=== PATIENT | female | born 1990 | race Caucasian/White ===

== ENCOUNTER → 2018-05-17 | Outpatient (CLI) | payer OTHER | END | disposition home or self-care (01) | LOC: LAB 08:43 → LAB SHORT 08:43 | DX: Z34.80 Encounter for supervision of other normal pregnancy, unspecified trimester (principal) | CPT/HCPCS: 87081; 87653 ==

== ENCOUNTER 2018-06-23 05:12 | Inpatient (IN) | payer OTHER ==
[~2018-06-23] VITALS: Ht 167.6 cm; Wt 0.4 kg
[2018-06-23] MEDS ORDERED: Verotin-Gr Cap1 EACH (05:22)
[2018-06-23 05:49] LABS: BASOPHILS ABSOLUTE AUTO 0.03 K/mm3 (0.00-0.23); BASOPHILS PERCENT AUTO 0 % (0-2); EOSINOPHILS ABSOLUTE AUTO 0.07 K/mm3 (0.00-0.68); EOSINOPHILS PERCENT AUTO 1 % (0-6); Hematocrit 36.4 % (33.0-51.0); IMMATURE GRAN ABSOLUTE AUTO 0.08 K/mm3 (0.00-0.10); IMMATURE GRAN PERCENT AUTO 1 % (0-1); LYMPHOCYTES ABSOLUTE AUTO 2.73 K/mm3 (0.84-5.20); LYMPHOCYTES PERCENT AUTO 26 % (21-46); MONOCYTES ABSOLUTE AUTO 0.66 K/mm3 (0.16-1.47); MONOCYTES PERCENT AUTO 6 % (4-13); Mean Corpuscular HGB 29.6 pg (26.0-34.0); Mean Corpuscular Volume 90 fL (80-100); Mean Platelet Volume 11.2 fL (9.1-12.4); NEUTROPHILS ABSOLUTE AUTO 6.86 K/mm3 (1.96-9.15); NEUTROPHILS PERCENT AUTO 66 % (41-73); Platelet Count 306 K/mm3 (150-400); RDW Coefficient Variation 12.7 % (11.7-14.2); RDW Standard Deviation 41.6 fL (35.1-46.3); Red Blood Cell Count 4.06 M/mm3 (3.80-5.20); White Blood Cell Count 10.43 K/mm3 (4.00-11.30)
[2018-06-24 05:22] LABS: Hematocrit 31.8 % (33.0-51.0); Hemoglobin 10.4 g/dL (11.5-16.0); Mean Corpuscular HGB 29.8 pg (26.0-34.0); Mean Corpuscular HGB Conc 32.7 g/dL (31.5-36.5); Mean Corpuscular Volume 91 fL (80-100); Platelet Count 282 K/mm3 (150-400); Red Blood Cell Count 3.49 M/mm3 (3.80-5.20); White Blood Cell Count 11.29 K/mm3 (4.00-11.30)
[2018-06-24] MEDS ORDERED: Verotin-Gr Cap1 EACH PO (10:31)
--- NOTE | 2018-06-24 11:15 | NUR ---
CONSULT PRIOR TO DISCHARGE HOME. BF FIRST CHILD ABOUT 1 MONTH, THEN SWITCHED TO BOTTLE AND WAS UNCOMFORTABLE DURING DRYING UP. NOT GETTING THE IMPRESSION THAT SHE IS VERY MOTIVATED TO BF. INSTRUCT IN SUPPLY AND DEMAND, CHANGES TO EXPECT DURING THE FIRST WEEK WITH FEEDINGS AND WITH BABY, AND REFERRED TO BF [employer]CH[employer] AND PAGE 18 OF BF BOOKLET FOR PHOTOS AND INFORMATION. INSTRUCT/DEMO HOW TO POSITION TO OBTAIN A DEEPER LATCH AND THEN FURTHER WIDEN THE LATCH UNTIL COMFORTABLE. SHE HANDLES BABY WELL, FOLLOWS INSTRUCTIONS AT FIRST, THEN PULLS BABY AWAY FROM BREAST WHEN SHE IS STILL ROOTING TO RELATCH AND SUCKLE. INSTRUCT THAT OFFERING BOTTLES OF FORMULA WILL DECREASE HER SUPPLY IF SHE CHOOSES NOT TO PUMP FOR THAT FEEDING, OR BABY MAY CHOOSE BOTTLE OVER BREAST FOR EASE OF GETTING PRODUCT. HER CHOICE. DENIES QUESTIONS.
--- NOTE | 2018-06-24 13:36 | NUR ---
DISCHARGE PT GIVEN DISCHARGE INSTRUCTIONS, HUGS REMOVED, BANDS MATCHED, VITALS ALL WITHIN NORMAL LIMITS. WILL RETURN 06/27/18 FOR PPFU AT 10 AM.
== END 2018-06-24 12:34 | disposition home or self-care (01) | DRG 807 ==
LOC: BC 05:12
PROVIDERS: ADMIT Obstetrics & Gynecology
PROC: 3E033VJ Introduction of Other Hormone into Peripheral Vein, Percutaneous Approach (ICD-10-PCS; principal; 2018-06-23)
PROC: 10E0XZZ Delivery of Products of Conception, External Approach (ICD-10-PCS; 2018-06-23)
PROC: 0KQM0ZZ Repair Perineum Muscle, Open Approach (ICD-10-PCS; 2018-06-23)
PROC: 10907ZC Drainage of Amniotic Fluid, Therapeutic from Products of Conception, Via Natural or Artificial Opening (ICD-10-PCS; 2018-06-23)
PROC: 6A550ZT Pheresis of Cord Blood Stem Cells, Single (ICD-10-PCS; 2018-06-23)
PROC: 3E0R3BZ Introduction of Anesthetic Agent into Spinal Canal, Percutaneous Approach (ICD-10-PCS; 2018-06-23)
PROC: 00HU33Z Insertion of Infusion Device into Spinal Canal, Percutaneous Approach (ICD-10-PCS; 2018-06-23)
DX: O70.1 Second degree perineal laceration during delivery (principal); Z37.0 Single live birth; Z3A.40 40 weeks gestation of pregnancy
CPT/HCPCS: 36415; 51702; 85025; 85027; J1885; J2590; J3010; J7120

== ENCOUNTER 2018-09-05 11:12 | Day surgery (SDC) | payer OTHER ==
[~2018-09-05] VITALS: Ht 170.2 cm; Wt 96.0 kg
[~2018-09-05 11:12] MED LIST: Verotin-Gr Cap1 EACH; Verotin-Gr Cap1 EACH PO
--- NOTE | 2018-09-05 12:11 | NUR ---
Ambulatory in Day Surgery History, Chart, Medications and Allergies reviewed before start of procedure.Lungs clear T/O to Auscultation. Patient confirms NPO status and agrees with scheduled surgery. Pre-Op teaching done. Pt verbalizes understanding. Patient States Post-Procedure ride home has been arranged.
--- NOTE | 2018-09-05 12:17 | NUR ---
CAME BACK TO BEDSIDE, TRACKER FORM GIVEN TO HIM. HE LEFT WITH THEIR TWO GIRLS. PT WAITING WITH NO COMPLAINTS AT THIS TIME.
--- NOTE | 2018-09-05 12:35 | NUR ---
[facility] STICKER HAND AT BEDSIDE. REPORT DONE.
--- NOTE | 2018-09-05 12:59 | NUR ---
09/05/18 1259 Jass Dietrich NO ANTIBIOTICS ORDERED.
--- NOTE | 2018-09-05 15:52 | NUR ---
Patient up to Ambulate independently. Gait steady. Discharge instructions reviewed with patient. Patient verbalizes understanding. Copy given to patient to take home. Patient States Post-Procedure ride home has been arranged. Discharged via wheelchair to private car for ride home.
== END 2018-09-05 22:59 | disposition home or self-care (01) ==
LOC: ORSCMMR 11:12 → ORD 12:30 → ORSCMMR 12:30 → ORSCSDS 09-22 13:00
PROVIDERS: Obstetrics & Gynecology
PROC: 0UT74ZZ Resection of Bilateral Fallopian Tubes, Percutaneous Endoscopic Approach (ICD-10-PCS; principal; 2018-09-05 12:30)
DX: Z30.2 Encounter for sterilization (principal); E66.9 Obesity, unspecified; Z68.33 Body mass index [BMI] 33.0-33.9, adult
CPT/HCPCS: 88302; A9270-GY; J1100; J1885; J2250; J2405; J2704; J2710; J3010; J7120